=== PATIENT | male | born 1970 | race Caucasian/White ===

== ENCOUNTER 2018-11-26 13:08 | Emergency (ER) | payer OTHER ==
[~2018-11-26] VITALS: Ht 180.3 cm; Wt 90.7 kg
[2018-11-26 13:12] VITALS: BP_SYST 135
[2018-11-26 15:30] VITALS: BP_SYST 131
== END 2018-11-26 15:30 | disposition home or self-care (01) ==
LOC: SED 13:08
DX: S61.216A Laceration without foreign body of right little finger without damage to nail, initial encounter (principal); S60.221A Contusion of right hand, initial encounter; W20.8XXA Other cause of strike by thrown, projected or falling object, initial encounter; Y93.89 Activity, other specified; Y92.69 Other specified industrial and construction area as the place of occurrence of the external cause; Y99.8 Other external cause status
CPT/HCPCS: 99283